=== PATIENT | male | born 1990 | race Caucasian/White ===

== ENCOUNTER 2019-07-23 18:10 | Emergency (ER) | payer OTHER ==
[~2019-07-23] VITALS: Ht 175.3 cm; Wt 73.9 kg
[2019-07-23] MEDS ORDERED: PREDNISONE 20 M20 MG PO (18:34)
[2019-07-23] MEDS ORDERED: NYSTATIN 100,0015 G1 TOP (18:34)
[2019-07-23] MEDS ORDERED: HYDROCORTISONE3011 TP (18:34)
[2019-07-23 19:00] VITALS: BP 123/72
== END 2019-07-23 19:00 | disposition home or self-care (01) ==
LOC: M.ERS 18:10
DX: B35.3 Tinea pedis (principal); L25.9 Unspecified contact dermatitis, unspecified cause; F17.210 Nicotine dependence, cigarettes, uncomplicated